=== PATIENT | female | born 1955 | race Caucasian/White ===

== ENCOUNTER 2016-12-27 12:46 | Emergency (ER) | payer OTHER ==
[~2016-12-27] VITALS: Ht 152.4 cm; Wt 37.1 kg
[2016-12-27] MEDS ORDERED: METH5TAB2 PO (14:36)
[2016-12-27] MEDS ORDERED: OXYC1TAB7 PO (14:36)
[2016-12-27] MEDS ORDERED: ACETAMINOPHEN 325 MG TABLET ONE (15:16)
[2016-12-27 16:55] VITALS: BP 90/65
== END 2016-12-27 16:58 | disposition home or self-care (01) ==
LOC: ED 16:35
DX: K94.23 Gastrostomy malfunction (principal)
CPT/HCPCS: 99281